=== PATIENT | male | born 1985 | race Hispanic/Latino ===

== ENCOUNTER 2019-01-19 12:03 | Emergency (ER) | payer OTHER ==
[~2019-01-19] VITALS: Ht 160 cm; Wt 65.0 kg
[2019-01-19] MEDS ORDERED: MOTRIN800 MG PO (13:11)
[2019-01-19] MEDS ORDERED: SILVADENE1 % EX (13:11)
[2019-01-19] MEDS ORDERED: TRAMADOL HCL50 MG PO (13:11)
[2019-01-19 13:35] VITALS: BP 125/74
== END 2019-01-19 13:40 | disposition home or self-care (01) | DRG 935 ==
LOC: ED 12:03
DX: T24.611A Corrosion of second degree of right thigh, initial encounter (principal); T24.631A Corrosion of second degree of right lower leg, initial encounter; T65.891A Toxic effect of other specified substances, accidental (unintentional), initial encounter; T32.0 Corrosions involving less than 10% of body surface; Y99.0 Civilian activity done for income or pay

== ENCOUNTER 2019-01-21 12:01 | Emergency (ER) | payer OTHER ==
[~2019-01-21] VITALS: Ht 160 cm; Wt 65.0 kg
[~2019-01-21 12:01] MED LIST: MOTRIN800 MG PO; SILVADENE1 % EX; TRAMADOL HCL50 MG PO
[2019-01-21 13:05] VITALS: BP 128/77
== END 2019-01-21 13:05 | disposition home or self-care (01) | DRG 935 ==
LOC: ED 12:01
DX: T24.211A Burn of second degree of right thigh, initial encounter (principal); T24.231A Burn of second degree of right lower leg, initial encounter